=== PATIENT | male | born 1960 | race Caucasian/White ===

== ENCOUNTER 2017-03-11 05:23 | Day surgery (SDC) | payer OTHER ==
[~2017-03-11] VITALS: Ht 172.7 cm; Wt 117.9 kg
--- NOTE | ~2017-03-11 | S ---
[facility] [place] [address] SURGICAL PATH RPT PROCEDURE Name: ANATOLIY MAHAN Room #: DEP [facility]..#: [id number] Admission: 03/11/17 Date of : 58 Discharge: 03/11/17 Report #: [id number] Path Case #: [id number] PATHOLOGY REPORT COLLECTION DATE: 03/11/2017 RECEIVED DATE: 03/11/2017 SUBMITTING PHYS: Dr. Zaheer Greene OTHER PHYS: Dr. Allen Izquierdo SPECIMEN(S) RECEIVED: A.Right tonsil B.Left tonsil C.UPPP * * * * * * * * * * * * FINAL DIAGNOSIS: A. Tonsil, "right", tonsillectomy: - Acutely inflamed squamous epithelium overlying lymphoid tissue with reactive hyperplasia. B. Tonsil, "left", tonsillectomy: - Acutely inflamed squamous epithelium overlying lymphoid tissue with reactive hyperplasia. C. Uvea, "UPPP", excision: - Reactive squamous epithelium overlying stroma with edema compatible with hypertrophy, history of BARBRA. PATHOLOGIST: Claudia Chauhan M.D. REPORT ELECTRONICALLY SIGNED BY: Claudia Chauhan M.D. DATE/TIME: 03/12/2017 16:47 * * * * * * * * * * * * GROSS PATHOLOGY: A. The specimen is received in formalin, labeled "Anatoliy Mahan, right tonsil" and consists of an oval, glistening, and red pink and cauterized tonsil measuring 2.5 x 2.3 x 2.1 cm. The margin is inked and sectioning reveals glistening pink villanueva cut surfaces. A account development representative section is submitted as A1. B. The specimen is received in formalin, labeled "Anatoliy Mahan, left tonsil" and consists of an oval, glistening, red-pink, and cauterized tonsil measuring 3.4 by a 2.1 x 2.0 cm. Margin is inked and sectioning reveals pink-villanueva cut surfaces. A account development representative section is submitted as B1. C. The specimen is received in formalin, labeled "Jaden UPPP" and consists of a glistening pink and triangular tissue fragment measuring 2.0 cm in length with diameter ranging from 0.7 cm to 1.4 [address] [place] [address] SURGICAL PATH RPT PROCEDURE Name: ANATOLIY MAHAN Room #: [facility].#: [id number] Admission: 03/11/17 Date of : 58 Discharge: 03/11/17 Report #: [id number] Path Case #: [id number] cm. Sectioning reveals no gross lesions. A account development representative section cassette as C1. (TYLOR; 03/11/2017) CLINICAL HISTORY: Tonsillar hyperplasia, BARBRA INITIAL CPT CODE(S): A; 71170 B; 03115 C; 56896 Professional services performed by [facility] at [facility] [address] [place] [address] Technical services performed by [facility] at [address] [place] [address], [address], [place] [address]. [facility] [address] [place] [address] PHONE: [phone] DIRECTOR: Riki Alfonso M.D. * * * END OF REPORT * * *
--- NOTE | ~2017-03-11 | H ---
[facility] [place] [address] HISTORY AND PHYSICAL Name: ANATOLIY MAHAN Room #: DEP [facility]..#: [id number] Admission: 03/11/17 Attend Phys: Zaheer Greene MD Discharge: 03/11/17 Date of : 58 Report #: [id number] THIS REPORT FOR: //name// CC: Zaheer Villa Izquierdo DATE OF SERVICE: 03/11/2017 The patient underwent eyelid surgery about 8 years ago but has developed problems once again that may require repeat surgery. It is possible that the recurrence is secondary to symptoms of obstructive sleep apnea. He sleeps with a pillow propped up on his left cheek in order to open his airway. He had a home based sleep study which showed severe obstructive sleep apnea. He has not had a CPAP trial as yet. He has difficulty with breathing and sleeping for a number of years. PAST MEDICAL HISTORY: Otherwise significant for high blood pressures. MEDICATIONS: Include Prilosec, Zocor, losartan. ALLERGIES: He has no known drug allergies. PHYSICAL EXAMINATION: He has a mildly deviated nasal septum to the left side with some mild swelling and redness to the nasal tissues. He has 3+ enlarged tonsils with a bulky palate and uvula and redundant pharyngeal tissue. He had no adenopathy or masses in his neck. A fiberoptic nasal laryngoscopy showed limited hypopharyngeal space secondary to enlarged tonsils and redundant pharyngeal tissue. IMPRESSION: Obstructive sleep apnea with enlarged tonsils and blockage of the hypopharynx. PLAN: Uvulopalatopharyngoplasty and tonsillectomy. By: 1640 1720 Zaheer Greene MD /nt
--- NOTE | ~2017-03-11 | EKG ---
[address] [address] ELECTROCARDIOGRAM REPORT Name: ANATOLIY MAHAN Room #: [address] [place] [address]..#: [id number] Admission: 03/11/17 Attend Phys: Zaheer Greene MD Discharge: Date of : 58 Report #: [id number] THIS REPORT FOR: //name// [facility] Test Date: 2017-03-11 Test Time: 07:13:28 Pat Name: ANATOLIY MAHAN Department: Room: 150 11 Gender: M B2B Appointment Setter: JOSEMANUEL : 1960 Requested By: Mitul Pena Order Number: [id number] MD: Linwood Luciano Measurements Intervals [place] Rate: 81 P: 15 ID: 135 QRS: 25 QRSD: 89 T: 3 QT: 375 QTc: 436 Interpretive Statements Sinus rhythm Poor R wave progression No previous ECG available for comparison Electronically Signed On 03-11-2017 8:54:09 CDT by Linwood Luciano [email or web address] <ELECTRONICALLY SIGNED> By: Linwood Luciano MD, [facility] 03/11/17 0854 0713 2 Linwood Luciano MD, FACC /EPI
--- NOTE | ~2017-03-11 | O ---
[facility] [place] [address] OPERATIVE REPORT Name: ANATOLIY MAHAN Room #: DEP [facility]..#: [id number] Admission: 03/11/17 Attend Phys: Zaheer Greene MD Discharge: 03/11/17 Date of : 58 Report #: [id number] THIS REPORT FOR: //name// CC: Zaheer Villa Izquierdo DATE OF SERVICE: 03/11/2017 PREOPERATIVE DIAGNOSES: Obstructive sleep apnea, tonsillar hypertrophy, chronic tonsillitis. POSTOPERATIVE DIAGNOSES: Obstructive sleep apnea, tonsillar hypertrophy, chronic tonsillitis. OPERATIVE PROCEDURE: Uvulopalatopharyngoplasty and tonsillectomy. ANESTHESIA: General endotracheal. PROCEDURE: The patient was taken to the operating room and placed in supine position. General anesthesia was induced by endotracheal intubation. Once adequate general anesthesia was obtained, the patient was draped in a sterile manner. A Johanna-Tariq mouth gag was placed in the patient's mouth and the tongue was deviated upward. The right tonsil was grasped and deviated towards the midline. An incision was placed in the anterior tonsillar pillar using the Bovie electrocautery and a plane between the tonsillar capsule and tonsillar fossa was established. Dissection was carried out in this plane using the Bovie and hemostasis was achieved during the dissection. Dissection was carried out from superior to inferior. The inferior pole was incised. The posterior tonsillar mucosa was incised. The tonsil was removed and sent to pathology. The left tonsil was removed in exactly the same manner. The area was then irrigated with normal saline. Hemostasis was verified in the tonsillar beds. The uvula was grasped and an incision was placed at its base at the free edge of the palate. Dissection was carried down through the mucosa, submucosa to the opposite side through the muscularis. The nasopharyngeal mucosa was reapproximated to the oropharyngeal mucosa of the soft palate with 4-0 Vicryl suture and the superior poles of the tonsillar beds were reapproximated as well. The mouth gag was removed. The patient tolerated the procedure well. Blood loss approximately 50 mL. The patient was then awoken and taken to the recovery room in stable condition for postoperative monitoring. By: 0935 1044 Zaheer Greene MD /angel luis
[~2017-03-11 05:23] MED LIST: ASPIR 8181 MG PO; COZAAR 25 MG TA25 M1 PO; FLAX SEED OIL1000 MG PO; KRILL OIL 1,001 EAC1 PO; OCUVITE EYE +1 EACH PO; OMEPRAZOLE 20 M20 M1 PO; SUDAFED 12 HOU120 MG PO; VITAMIN D2000 UNIT PO; ZOCOR20 MG PO
[2017-03-11 08:00] VITALS: BP 141/98
[2017-03-11 09:47] VITALS: BP 141/98
== END 2017-03-11 11:55 | disposition home or self-care (01) ==
LOC: TBA 05:23 → OR 05:23
DX: G47.33 Obstructive sleep apnea (adult) (pediatric) (principal); J35.01 Chronic tonsillitis; I10 Essential (primary) hypertension; E78.5 Hyperlipidemia, unspecified; K21.9 Gastro-esophageal reflux disease without esophagitis
CPT/HCPCS: 50010; 50101; 56526; 62110; 62900; 70005